=== PATIENT | female | born 1990 | race Caucasian/White ===

== ENCOUNTER 2016-12-26 09:50 | Emergency (ER) | payer MEDICAID, OTHER ==
[2016-12-26 10:13] VITALS: BP 115/79
--- NOTE | 2016-12-26 10:24 | EDM.PDOC ---
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 She has painful lesions that have developed to her vagina. She reports that her boyfriend is a carrier of the herpes virus but has never had an outbreak. First sexual encounter with this partner was 2 weeks ago. She's been feeling ill for the past couple of days with body aches, mild nausea and low-grade fevers. Yesterday she developed some discomfort to her pelvic region and the vaginal lesions.] Review of systems: As per history of present illness and below otherwise all systems reviewed and negative. Past medical history: As per history of present illness and as reviewed below otherwise noncontributory. Surgical history: As per history of present illness and as reviewed below otherwise noncontributory. Social history: No reported history of drug or alcohol abuse. Family history: As per history of present illness and as reviewed below otherwise noncontributory. Physical exam: HEENT: Atraumatic, normocephalic. Oral mucous membranes are pink and moist. No lesions. Lungs: Clear to auscultation, breath sounds equal bilaterally. Heart: S1S2, regular rate and rhythm. Abdomen: Soft, nondistended. Mildly tender with palpation over epigastric area. Otherwise nontender. Negative for masses, guarding or rebound. Negative for costovertebral tenderness. Pelvis: Stable nontender. Genitourinary: Normal-appearing external vagina. No discharge noted. Small open vesicular type lesion at 6:00 of vaginal introitus. No other lesions are appreciated. Rectal: Deferred. Extremities: Atraumatic, and without deformity. Neurovascular unremarkable. Neuro: Awake, alert, oriented. Motor and sensory unremarkable throughout. Exam nonfocal. Impression: [Herpes simplex virus] Plan: [Discussed with patient that her symptoms appear to be consistent with herpes simplex. Rx written for acyclovir 400 mg #30 sig 1 by mouth 3 times a day 10 days 0 refills. Instructed to keep the area clean and dry. Good handwashing. Urged her to establish care with a local PCP for further STD testing and management of herpes. Discussed w/ patient that serum confirmation of HSV is not generally necessary, as treatment is based up on appearance. If she desires further discussion about this follow-up at PCP or local health department.] Definitive disposition and diagnosis as appropriate pending reevaluation and review of above. 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 ED EXAM, RENAL/ - Physical Exam Exam: See Below Course - Vital Signs Last Recorded V/S: Last Vital Signs Temp 98.8 F 12/26/16 10:08 Pulse 94 12/26/16 10:08 Resp 18 12/26/16 10:08 BP 115/79 12/26/16 10:08 Pulse Ox 97 12/26/16 10:08 Departure - Departure Time of Disposition: 11:05 Disposition: Home, Self-Care 01 Condition: Good Clinical Impression: Herpes simplex - Discharge Information Referrals: PCP,None [Primary Care Provider] - Forms: ED Department Discharge Additional Instructions: The following information is given to patients seen in the emergency department who are being discharged to home. This information is to outline your options for follow-up care. We provide all patients seen in our emergency department with a follow-up referral. The need for follow-up, as well as the timing and circumstances, are variable depending upon the specifics of your emergency department visit. If you don't have a primary care physician on staff, we will provide you with a referral. We always advise you to contact your personal physician following an emergency department visit to inform them of the circumstance of the visit and for follow-up with them and/or the need for any referrals to a consulting specialist. The emergency department will also refer you to a specialist when appropriate. This referral assures that you have the opportunity for follow-up care with a specialist. All of these measure are taken in an effort to provide you with optimal care, which includes your follow-up. Under all circumstances we always encourage you to contact your private physician who remains a resource for coordinating your care. When calling for follow-up care, please make the office aware that this follow-up is from your recent emergency room visit. If for any reason you are refused follow-up, please contact the [facility] emergency department at and asked to speak to the emergency department charge nurse. [facility] [address] [place] [id number] Establish care with a local primary care provider at the clinic listed above. Take medication as prescribed. Good handwashing, keep area clean and dry. Pelvic rest. Return to ER as needed as discussed.
== END 2016-12-26 11:40 | disposition home or self-care (01) ==
LOC: MW.ED 09:50
DX: B00.9 Herpesviral infection, unspecified (principal); Z88.1 Allergy status to other antibiotic agents; Z88.0 Allergy status to penicillin; Z88.2 Allergy status to sulfonamides
CPT/HCPCS: 99282; 99283

== ENCOUNTER 2019-03-05 21:02 | Observation (INO) | payer BC, OTHER ==
[2019-03-05] MEDS ORDERED: Ondansetron 4 MG/2 ML SDV IVPUSH ONE (21:14)
[2019-03-05] MEDS ORDERED: Sodium Chloride 0.9% 1,000 ML IV ONE ×2 (21:14→23:43)
--- NOTE | 2019-03-05 21:15 | EDM.PDOC ---
ED HPI GENERAL MEDICAL PROBLEM - General Chief Complaint: Abdominal Pain Stated Complaint: STOMACH PAIN Time Seen by Provider: 03/05/19 21:03 - History of Present Illness INITIAL COMMENTS - FREE TEXT/NARRATIVE: HISTORY AND PHYSICAL: History of present illness: Patiently 28-year-old female was recently diagnosed with right otitis media and put on azithromycin with known developed nausea vomiting and diarrhea she denies fever chills denies vaginal discharge or irregular bleeding or other complaints. Review of systems: As per history of present illness and below otherwise all systems reviewed and negative. Past medical history: As per history of present illness and as reviewed below otherwise noncontributory. Surgical history: As per history of present illness and as reviewed below otherwise noncontributory. Social history: No reported history of drug or alcohol abuse. Family history: As per history of present illness and as reviewed below otherwise noncontributory. Physical exam: HEENT: Atraumatic, normocephalic, pupils reactive, negative for conjunctival pallor or scleral icterus, mucous membranes dry, throat clear, neck supple, nontender, trachea midline. Lungs: Clear to auscultation, breath sounds equal bilaterally, chest nontender. Heart: S1S2, regular, negative for clicks, rubs, or JVD. Abdomen: Soft, nondistended, nontender. Negative for masses or hepatosplenomegaly. Negative for costovertebral tenderness. Pelvis: Stable nontender. Genitourinary: Deferred. Rectal: Deferred. Extremities: Atraumatic, negative for cords or calf pain. Neurovascular unremarkable. Neuro: Awake, alert, oriented. Cranial nerves II through XII unremarkable. Cerebellum unremarkable. Motor and sensory unremarkable throughout. Exam nonfocal. Diagnostics: CBC CMP UA hCG lipase Therapeutics: Saline 1 L bolus Zofran 4 mg IV Impression: #1 gastroenteritis #2 history of recent otitis media #3 rule out drug reaction Definitive disposition and diagnosis as appropriate pending reevaluation and review of above. 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 ED EXAM, GENERAL - Physical Exam Exam: See Below (Dictation) Course - Vital Signs Last Recorded V/S: Last Vital Signs Temp 36.1 C 03/05/19 21:13 Pulse 116 H 03/05/19 21:13 Resp 20 03/05/19 21:13 BP 111/73 03/05/19 21:13 Pulse Ox 95 03/05/19 21:13 - Orders/Labs/Meds Orders: Active Orders 24 hr Category Date Time Status CULTURE URINE [RM] Stat Lab 03/05/19 21:24 Received [email or web address] [Rocephin in Dextrose,Iso-Osm 1 GM/50 ML] 1 Med 03/05/19 22:06 Active gm Premix Bag 1 bag IV ONETIME Medication Orders Ceftriaxone Sodium/Dextrose 1 (gm/ Premix) 50 mls @ 100 mls/hr IV ONETIME ONE Stop: 03/05/19 22:35 Labs: Laboratory Tests 03/05/19 03/05/19 03/05/19 Range/Units 21:24 21:35 21:35 WBC 21.91 H (4.0-11.0) K/uL RBC 5.69 (4.30-5.90) M/uL Hgb 17.3 H (12.0-16.0) g/dL Hct 49.3 H (36.0-46.0) % MCV 86.6 (80.0-98.0) fL MCH 30.4 (27.0-32.0) pg MCHC 35.1 (31.0-37.0) g/dL RDW Std Deviation 41.5 (28.0-62.0) fl RDW Coeff of Castillo 13 (11.0-15.0) % Plt Count 302 (150-400) K/uL MPV 10.60 (7.40-12.00) fL Neut % (Auto) 79.1 (48.0-80.0) % Lymph % (Auto) 14.1 L (16.0-40.0) % Lassen % (Auto) 4.6 (0.0-15.0) % Eos % (Auto) 1.9 (0.0-7.0) % Baso % (Auto) 0.3 (0.0-1.5) % Neut # (Auto) 17.3 H (1.4-5.7) K/uL Lymph # (Auto) 3.1 H (0.6-2.4) K/uL Lassen # (Auto) 1.0 H (0.0-0.8) K/uL Eos # (Auto) 0.4 (0.0-0.7) K/uL Baso # (Auto) 0.1 (0.0-0.1) K/uL Nucleated RBC % 0.0 /100WBC Nucleated RBCs # 0 K/uL Sodium 138 (136-145) mmol/L Potassium 4.0 (3.5-5.1) mmol/L Chloride 101 (98-107) mmol/L Carbon Dioxide 23.0 (21.0-32.0) mmol/L BUN 14 (7.0-18.0) mg/dL Creatinine 1.0 (0.6-1.0) mg/dL Est Cr Clr Drug Dosing 74.69 mL/min Estimated GFR (MDRD) > 60.0 ml/min Glucose 102 (74-106) mg/dL Calcium 9.6 (8.5-10.1) mg/dL Total Bilirubin 0.6 (0.2-1.0) mg/dL AST 13 L (15-37) IU/L ALT 26 (14-63) IU/L Alkaline Phosphatase 84 (46-116) U/L Total Protein 8.7 H (6.4-8.2) g/dL Albumin 3.6 (3.4-5.0) g/dL Globulin 5.1 H (2.6-4.0) g/dL Albumin/Globulin Ratio 0.7 L (0.9-1.6) Lipase (73-393) U/L HCG, Qual (NEG) Urine Color YELLOW Urine Appearance CLOUDY Urine pH 6.0 (5.0-8.0) Ur Specific [place] >= 1.030 (1.001-1.035) Urine Protein 30 H (NEGATIVE) mg/dL Urine Glucose (UA) NEGATIVE (NEGATIVE) mg/dL Urine Ketones TRACE H (NEGATIVE) mg/dL Urine Occult Blood TRACE-INTACT H (NEGATIVE) Urine Nitrite POSITIVE H (NEGATIVE) Urine Bilirubin SMALL H (NEGATIVE) Urine Ictotest NEGATIVE Urine Urobilinogen 1.0 (<2.0) EU/dL Ur Leukocyte Esterase NEGATIVE (NEGATIVE) Urine RBC 0-2 (0-2/HPF) Urine WBC 1-2 (0-5/HPF) Ur Epithelial Cells FEW (NONE-FEW) Urine Bacteria 4+ H (NEGATIVE) Urine Mucus LIGHT (NONE-MOD) 03/05/19 03/05/19 Range/Units 21:35 21:35 WBC (4.0-11.0) K/uL RBC (4.30-5.90) M/uL Hgb (12.0-16.0) g/dL Hct (36.0-46.0) % MCV (80.0-98.0) fL MCH (27.0-32.0) pg MCHC (31.0-37.0) g/dL RDW Std Deviation (28.0-62.0) fl RDW Coeff of Castillo (11.0-15.0) % Plt Count (150-400) K/uL MPV (7.40-12.00) fL Neut % (Auto) (48.0-80.0) % Lymph % (Auto) (16.0-40.0) % Lassen % (Auto) (0.0-15.0) % Eos % (Auto) (0.0-7.0) % Baso % (Auto) (0.0-1.5) % Neut # (Auto) (1.4-5.7) K/uL Lymph # (Auto) (0.6-2.4) K/uL Lassen # (Auto) (0.0-0.8) K/uL Eos # (Auto) (0.0-0.7) K/uL Baso # (Auto) (0.0-0.1) K/uL Nucleated RBC % /100WBC Nucleated RBCs # K/uL Sodium (136-145) mmol/L Potassium (3.5-5.1) mmol/L Chloride (98-107) mmol/L Carbon Dioxide (21.0-32.0) mmol/L BUN (7.0-18.0) mg/dL Creatinine (0.6-1.0) mg/dL Est Cr Clr Drug Dosing mL/min Estimated GFR (MDRD) ml/min Glucose (74-106) mg/dL Calcium (8.5-10.1) mg/dL Total Bilirubin (0.2-1.0) mg/dL AST (15-37) IU/L ALT (14-63) IU/L Alkaline Phosphatase (46-116) U/L Total Protein (6.4-8.2) g/dL Albumin (3.4-5.0) g/dL Globulin (2.6-4.0) g/dL Albumin/Globulin Ratio (0.9-1.6) Lipase 127 (73-393) U/L HCG, Qual NEGATIVE (NEG) Urine Color Urine Appearance Urine pH (5.0-8.0) Ur Specific [place] (1.001-1.035) Urine Protein (NEGATIVE) mg/dL Urine Glucose (UA) (NEGATIVE) mg/dL Urine Ketones (NEGATIVE) mg/dL Urine Occult Blood (NEGATIVE) Urine Nitrite (NEGATIVE) Urine Bilirubin (NEGATIVE) Urine Ictotest Urine Urobilinogen (<2.0) EU/dL Ur Leukocyte Esterase (NEGATIVE) Urine RBC (0-2/HPF) Urine WBC (0-5/HPF) Ur Epithelial Cells (NONE-FEW) Urine Bacteria (NEGATIVE) Urine Mucus (NONE-MOD) Meds: Medications Generic Name Dose Route Start Last Admin Trade Name Freq PRN Reason Stop Dose Admin Ceftriaxone Sodium/Dextrose 1 50 mls @ 100 mls/hr 03/05/19 22:06 gm/ Premix IV 03/05/19 22:35 ONETIME ONE Discontinued Medications Generic Name Dose Route Start Last Admin Trade Name Freq PRN Reason Stop Dose Admin Sodium Chloride 1,000 mls @ 999 mls/hr 03/05/19 21:14 03/05/19 21:35 Normal Saline IV 03/05/19 22:14 999 mls/hr .Bolus ONE Administration Ondansetron HCl 4 mg 03/05/19 21:14 03/05/19 21:35 Zofran IVPUSH 03/05/19 21:15 4 mg ONETIME ONE Administration Departure - Departure Time of Disposition: 22:25 Disposition: Refer to Observation Condition: Good Clinical Impression: Gastroenteritis, UTI (urinary tract infection), Dehydration - Discharge Information Referrals: Leta Reich DO [Primary Care Provider] - Forms: ED Department Discharge - My Orders Last 24 Hours: My Active Orders 03/05/19 21:24 CULTURE URINE [RM] Stat 03/05/19 22:06 [email or web address] [Rocephin in Dextrose,Iso-Osm 1 GM/50 ML] 1 gm Premix Bag 1 bag IV ONETIME - Assessment/Plan Last 24 Hours: My Active Orders 03/05/19 21:24 CULTURE URINE [RM] Stat 03/05/19 22:06 [email or web address] [Rocephin in Dextrose,Iso-Osm 1 GM/50 ML] 1 gm Premix Bag 1 bag IV ONETIME
[2019-03-05] MEDS ORDERED: cefTRIAXone 1 GM in Premix Bag 1 BAG IV ONE (22:06)
[2019-03-05 22:17] LABS: BLOOD UREA NITROGEN,BUN 14 mg/dL (7.0-18.0); CHLORIDE,CL 101 mmol/L (98-107); GLUCOSE RANDOM 102 mg/dL (74-106); SODIUM,NA 138 mmol/L (136-145)
[2019-03-05] MEDS ORDERED: Ondansetron 4 MG/2 ML SDV IVPUSH PRN (23:44)
[2019-03-05] MEDS ORDERED: Pantoprazole 40 MG in Sodium Chloride 0.9% 10 ML IV ONE (23:44)
[2019-03-05] MEDS ORDERED: Aluminum Hydroxide/Magnesium Hydroxide/Simethicone Susp 30 ML Cup PO PRN (23:54)
[2019-03-06] MEDS: Morphine 2 MG/ML Syringe IVPUSH PRN ×4 (00:18→23:14)
[2019-03-06] MEDS: Sodium Chloride 0.9% 1,000 ML IV SCH ×3 (02:43→18:40)
[2019-03-06] MEDS: Pantoprazole 40 MG in Sodium Chloride 0.9% 10 ML IV SCH (11:25)
[2019-03-06 13:35] LABS: BLOOD UREA NITROGEN,BUN 14 mg/dL (7.0-18.0); CARBON DIOXIDE,CO2 24.2 mmol/L (21.0-32.0); CHLORIDE,CL 108 mmol/L (98-107); GLUCOSE RANDOM 77 mg/dL (74-106); POTASSIUM,K 4.1 mmol/L (3.5-5.1); SODIUM,NA 140 mmol/L (136-145)
--- NOTE | 2019-03-06 16:18 | PCM.HP.2 ---
<Dillan Wallace M - Last Filed: 03/06/19 16:32> H&P History of Present Illness - General Date of Service: 03/06/19 Admit Problem/Dx: Admission Diagnosis/Problem Admission Diagnosis/Problem Gastroenteritis Source of Information: Patient History Limitations: Reports: No Limitations - History of Present Illness Initial Comments - Free Text/Narative: 28-year-old female presented to ER with complaints of nausea, vomiting and diarrhea. Patient reports that these symptoms started 3 days ago. She was diagnosed with right ear infection 3 days ago and prescribed azithromycin. Patient states that on the same day, she started experiencing nausea, vomiting, diarrhea and abdominal cramping. She is also having headaches. Patient reports having up to 12 loose, non-bloody, bowel movements per day. She denies having any fevers, chills, shortness of breath, chest pain, blood in urine, pain when urinating, blood in stool, numbness or tingling in extremities. In the ER, UA nitrite positive with 4+ bacteria. Lactate was normal. WBC count was 21. CMP unremarkable. Patient given 1 L NS boluse, zofran and started on ceftriaxone. Middle Abdomen Pain Score (Numeric/FACES): 5 - Related Data Allergies/Adverse Reactions: Allergies Allergy/AdvReac Type Severity Reaction Status Date / Time amoxicillin Allergy Airway Verified 03/05/19 23:33 Tightness Penicillins Allergy Airway Verified 03/05/19 23:33 Tightness Sulfa (Sulfonamide Allergy Airway Verified 03/05/19 23:33 Antibiotics) Tightness Home Medications: Home Meds Alum Hydrox/Mag Hydrox/Simeth [Mag-Al Plus] 15 ml PO Q6H PRN #14 cup 03/07/19 [ Rx] Ciprofloxacin HCl [Cipro] 250 mg PO BID #10 tablet 03/07/19 [Rx] Pantoprazole [ProTONIX] 40 mg PO DAILY #7 tab.cr 03/07/19 [Rx] Past Medical History - Past Health History Medical/Surgical History: Denies Medical/Surgical History [employer]OCIATE History: Reports: Psychiatric History: Reports: None - Infectious Disease History Infectious Disease History: Reports: Chicken Pox - Past Surgical History HEENT Surgical History: Reports: Adenoidectomy, Tonsillectomy Female Surgical History: Reports: Section Social & Family History - Family History Family Medical History: Noncontributory - Tobacco Use Smoking Status *Q: Current Every Day Smoker Years of Tobacco use: 4 Packs/Tins Daily: 0.5 - Caffeine Use Caffeine Use: Reports: Coffee - Recreational Drug Use Recreational Drug Use: No H&P Review of Systems - Review of Systems: Review Of Systems: Comprehensive ROS is negative, except as noted in HPI. Exam - Exam Exam: See Below - Vital Signs Vital Signs: Last Vital Signs Temp 98.1 F 03/06/19 12:00 Pulse 75 03/06/19 12:00 Resp 18 03/06/19 12:00 BP 109/63 03/06/19 12:00 Pulse Ox 96 03/06/19 12:00 Weight: 116.256 kg - Exam General: Alert, Oriented, Cooperative HEENT: Conjunctiva Clear, EOMI, Hearing Intact Neck: Supple, Trachea Midline Lungs: Clear to Auscultation, Normal Respiratory Effort Cardiovascular: Regular Rate, Regular Rhythm GI/Abdominal Exam: Normal Bowel Sounds, Soft, No Distention, Other (mild epigastric tenderness) Extremities: Normal Inspection, No Pedal Edema Peripheral Pulses: 2+: Posterior Tibial (L), Posterior Tibial (R) Skin: Warm, Dry, Intact Neurological: Cranial Nerves Intact, Strength Equal Bilateral, Normal Speech, Normal Tone Neuro Extensive - Mental Status: Alert, Oriented x3, Normal Mood/Affect - Patient Data Lab Results Last 24 hrs: Laboratory Results - last 24 hr 03/05/19 03/05/19 03/05/19 Range/Units 21:24 21:35 21:35 WBC 21.91 H (4.0-11.0) K/uL RBC 5.69 (4.30-5.90) M/uL Hgb 17.3 H (12.0-16.0) g/dL Hct 49.3 H (36.0-46.0) % MCV 86.6 (80.0-98.0) fL MCH 30.4 (27.0-32.0) pg MCHC 35.1 (31.0-37.0) g/dL RDW Std Deviation 41.5 (28.0-62.0) fl RDW Coeff of Castillo 13 (11.0-15.0) % Plt Count 302 (150-400) K/uL MPV 10.60 (7.40-12.00) fL Neut % (Auto) 79.1 (48.0-80.0) % Lymph % (Auto) 14.1 L (16.0-40.0) % [place] % (Auto) 4.6 (0.0-15.0) % Eos % (Auto) 1.9 (0.0-7.0) % Baso % (Auto) 0.3 (0.0-1.5) % Neut # (Auto) 17.3 H (1.4-5.7) K/uL Lymph # (Auto) 3.1 H (0.6-2.4) K/uL [place] # (Auto) 1.0 H (0.0-0.8) K/uL Eos # (Auto) 0.4 (0.0-0.7) K/uL Baso # (Auto) 0.1 (0.0-0.1) K/uL Nucleated RBC % 0.0 /100WBC Nucleated RBCs # 0 K/uL Lactate (0.20-2.00) mmol/L Sodium 138 (136-145) mmol/L Potassium 4.0 (3.5-5.1) mmol/L Chloride 101 (98-107) mmol/L Carbon Dioxide 23.0 (21.0-32.0) mmol/L BUN 14 (7.0-18.0) mg/dL Creatinine 1.0 (0.6-1.0) mg/dL Est Cr Clr Drug Dosing 74.69 mL/min Estimated GFR (MDRD) > 60.0 ml/min Glucose 102 (74-106) mg/dL Calcium 9.6 (8.5-10.1) mg/dL Total Bilirubin 0.6 (0.2-1.0) mg/dL AST 13 L (15-37) IU/L ALT 26 (14-63) IU/L Alkaline Phosphatase 84 (46-116) U/L Total Protein 8.7 H (6.4-8.2) g/dL Albumin 3.6 (3.4-5.0) g/dL Globulin 5.1 H (2.6-4.0) g/dL Albumin/Globulin Ratio 0.7 L (0.9-1.6) Lipase (73-393) U/L HCG, Qual (NEG) Urine Color YELLOW Urine Appearance CLOUDY Urine pH 6.0 (5.0-8.0) Ur Specific [place] >= 1.030 (1.001-1.035) Urine Protein 30 H (NEGATIVE) mg/dL Urine Glucose (UA) NEGATIVE (NEGATIVE) mg/dL Urine Ketones TRACE H (NEGATIVE) mg/dL Urine Occult Blood TRACE-INTACT H (NEGATIVE) Urine Nitrite POSITIVE H (NEGATIVE) Urine Bilirubin SMALL H (NEGATIVE) Urine Ictotest NEGATIVE Urine Urobilinogen 1.0 (<2.0) EU/dL Ur Leukocyte Esterase NEGATIVE (NEGATIVE) Urine RBC 0-2 (0-2/HPF) Urine WBC 1-2 (0-5/HPF) Ur Epithelial Cells FEW (NONE-FEW) Urine Bacteria 4+ H (NEGATIVE) Urine Mucus LIGHT (NONE-MOD) 03/05/19 03/05/19 03/05/19 Range/Units 21:35 21:35 21:35 WBC (4.0-11.0) K/uL RBC (4.30-5.90) M/uL Hgb (12.0-16.0) g/dL Hct (36.0-46.0) % MCV (80.0-98.0) fL MCH (27.0-32.0) pg MCHC (31.0-37.0) g/dL RDW Std Deviation (28.0-62.0) fl RDW Coeff of Castillo (11.0-15.0) % Plt Count (150-400) K/uL MPV (7.40-12.00) fL Neut % (Auto) (48.0-80.0) % Lymph % (Auto) (16.0-40.0) % [place] % (Auto) (0.0-15.0) % Eos % (Auto) (0.0-7.0) % Baso % (Auto) (0.0-1.5) % Neut # (Auto) (1.4-5.7) K/uL Lymph # (Auto) (0.6-2.4) K/uL [place] # (Auto) (0.0-0.8) K/uL Eos # (Auto) (0.0-0.7) K/uL Baso # (Auto) (0.0-0.1) K/uL Nucleated RBC % /100WBC Nucleated RBCs # K/uL Lactate 1.0 (0.20-2.00) mmol/L Sodium (136-145) mmol/L Potassium (3.5-5.1) mmol/L Chloride (98-107) mmol/L Carbon Dioxide (21.0-32.0) mmol/L BUN (7.0-18.0) mg/dL Creatinine (0.6-1.0) mg/dL Est Cr Clr Drug Dosing mL/min Estimated GFR (MDRD) ml/min Glucose (74-106) mg/dL Calcium (8.5-10.1) mg/dL Total Bilirubin (0.2-1.0) mg/dL AST (15-37) IU/L ALT (14-63) IU/L Alkaline Phosphatase (46-116) U/L Total Protein (6.4-8.2) g/dL Albumin (3.4-5.0) g/dL Globulin (2.6-4.0) g/dL Albumin/Globulin Ratio (0.9-1.6) Lipase 127 (73-393) U/L HCG, Qual NEGATIVE (NEG) Urine Color Urine Appearance Urine pH (5.0-8.0) Ur Specific [place] (1.001-1.035) Urine Protein (NEGATIVE) mg/dL Urine Glucose (UA) (NEGATIVE) mg/dL Urine Ketones (NEGATIVE) mg/dL Urine Occult Blood (NEGATIVE) Urine Nitrite (NEGATIVE) Urine Bilirubin (NEGATIVE) Urine Ictotest Urine Urobilinogen (<2.0) EU/dL Ur Leukocyte Esterase (NEGATIVE) Urine RBC (0-2/HPF) Urine WBC (0-5/HPF) Ur Epithelial Cells (NONE-FEW) Urine Bacteria (NEGATIVE) Urine Mucus (NONE-MOD) 03/06/19 03/06/19 Range/Units 13:05 13:05 WBC 12.49 H (4.0-11.0) K/uL RBC 4.69 (4.30-5.90) M/uL Hgb 13.8 (12.0-16.0) g/dL Hct 42.0 (36.0-46.0) % MCV 89.6 (80.0-98.0) fL MCH 29.4 (27.0-32.0) pg MCHC 32.9 (31.0-37.0) g/dL RDW Std Deviation 43.6 (28.0-62.0) fl RDW Coeff of Castillo 13 (11.0-15.0) % Plt Count 240 (150-400) K/uL MPV 10.50 (7.40-12.00) fL Neut % (Auto) 72.5 (48.0-80.0) % Lymph % (Auto) 17.4 (16.0-40.0) % [place] % (Auto) 6.1 (0.0-15.0) % Eos % (Auto) 3.8 (0.0-7.0) % Baso % (Auto) 0.2 (0.0-1.5) % Neut # (Auto) 9.1 H (1.4-5.7) K/uL Lymph # (Auto) 2.2 (0.6-2.4) K/uL [place] # (Auto) 0.8 (0.0-0.8) K/uL Eos # (Auto) 0.5 (0.0-0.7) K/uL Baso # (Auto) 0.0 (0.0-0.1) K/uL Nucleated RBC % 0.0 /100WBC Nucleated RBCs # 0 K/uL Lactate (0.20-2.00) mmol/L Sodium 140 (136-145) mmol/L Potassium 4.1 (3.5-5.1) mmol/L Chloride 108 H (98-107) mmol/L Carbon Dioxide 24.2 (21.0-32.0) mmol/L BUN 14 (7.0-18.0) mg/dL Creatinine 0.8 (0.6-1.0) mg/dL Est Cr Clr Drug Dosing 89.60 mL/min Estimated GFR (MDRD) > 60.0 ml/min Glucose 77 (74-106) mg/dL Calcium 7.9 L (8.5-10.1) mg/dL Total Bilirubin 0.5 (0.2-1.0) mg/dL AST 15 (15-37) IU/L ALT 21 (14-63) IU/L Alkaline Phosphatase 59 (46-116) U/L Total Protein 6.7 (6.4-8.2) g/dL Albumin 2.6 L (3.4-5.0) g/dL Globulin 4.1 H (2.6-4.0) g/dL Albumin/Globulin Ratio 0.6 L (0.9-1.6) Lipase (73-393) U/L HCG, Qual (NEG) Urine Color Urine Appearance Urine pH (5.0-8.0) Ur Specific [place] (1.001-1.035) Urine Protein (NEGATIVE) mg/dL Urine Glucose (UA) (NEGATIVE) mg/dL Urine Ketones (NEGATIVE) mg/dL Urine Occult Blood (NEGATIVE) Urine Nitrite (NEGATIVE) Urine Bilirubin (NEGATIVE) Urine Ictotest Urine Urobilinogen (<2.0) EU/dL Ur Leukocyte Esterase (NEGATIVE) Urine RBC (0-2/HPF) Urine WBC (0-5/HPF) Ur Epithelial Cells (NONE-FEW) Urine Bacteria (NEGATIVE) Urine Mucus (NONE-MOD) Result Diagrams: 03/06/19 13:05 03/06/19 13:05 Bishop Results Last 24 hrs: Microbiology 03/06/19 08:30 C. difficile Antigen & Toxins A,B - Final Stool / Feces 03/06/19 08:30 Campylobacter Antigen Assay - Final Stool / Feces NEGATIVE CAMPYLOBACTER AG REFERENCE RANGE: NEGATIVE 03/06/19 01:50 Anaerobic Blood Culture - Final Blood - Venous - Lab Draw Problem List Initiated/Reviewed/Updated: Yes Orders Last 24hrs: Active Orders 24 hr Category Date Time Status Patient Status [ADT] Stat ADT 03/05/19 22:26 Active Antiembolic Devices [RC] PER UNIT ROUTINE Care 03/06/19 09:27 Active NPO [Nothing Per Oral Diet] [DIET] Diet 03/06/19 Breakfast Active CBC WITH AUTO DIFF [HEME] AM Lab 03/07/19 05:11 Ordered COMPREHENSIVE METABOLIC PN,CMP [CHEM] AM Lab 03/07/19 05:11 Ordered CULTURE BLOOD [BC] Stat Lab 03/05/19 23:46 Received CULTURE BLOOD [BC] Stat Lab 03/05/19 23:46 Results CULTURE STOOL + CAMPY+SHIGATOX [RM] Routine Lab 03/06/19 08:30 Results CULTURE URINE [RM] Stat Lab 03/05/19 21:24 Received H PYLORI STOOL ANTIGEN [MREF] Urgent Lab 03/06/19 13:29 Ordered Alum Hydrox/Mag Hydrox/Simeth [Mag-Al Plus] Med 03/05/19 23:54 Active 15 ml PO Q6H PRN Morphine Med 03/05/19 23:56 Active 2 mg IVPUSH Q6H PRN Ondansetron [Zofran] Med 03/05/19 23:44 Active 4 mg IVPUSH Q6H PRN Pantoprazole [ProTONIX IV] 40 mg Med 03/06/19 10:45 Active Sodium Chloride 0.9% [Normal Saline] 10 ml IV Q24H Sodium Chloride 0.9% [Normal Saline] 1,000 ml Med 03/06/19 00:30 Active IV ASDIRECTED cefTRIAXone [Rocephin in Dextrose,Iso-Osm 1 GM/50 ML] 1 Med 03/06/19 21:00 Active gm Premix Bag 1 bag IV Q24H Blood Culture x2 Reflex Set [OM.PC] Stat Oth 03/05/19 23:46 Ordered SCD [Sequential Compression Device] [OM.PC] Routine Oth 03/06/19 09:27 Ordered Code Status [Resuscitation Status] Routine Resus Stat 03/06/19 09:26 Ordered Medication Orders Al Hydroxide/Mg Hydroxide (Mag-Al Plus) 15 ml PO Q6H PRN PRN Reason: Heartburn Ceftriaxone Sodium/Dextrose 1 (gm/ Premix) 50 mls @ 100 mls/hr IV Q24H DEANNA Sodium Chloride (Normal Saline) 1,000 mls @ 125 mls/hr IV ASDIRECTED DEANNA Last Admin: 03/06/19 11:26 Dose: 125 mls/hr Infusion: 03/06/19 10:43 Dose: 125 mls/hr Admin: 03/06/19 02:43 Dose: 125 mls/hr Pantoprazole Sodium 40 mg/ (Sodium Chloride) 10 mls @ 300 mls/hr IV Q24H DEANNA Last Admin: 03/06/19 11:25 Dose: 300 mls/hr Morphine Sulfate (Morphine) 2 mg IVPUSH Q6H PRN PRN Reason: Pain Last Admin: 03/06/19 10:39 Dose: 2 mg Admin: 03/06/19 00:18 Dose: 2 mg Ondansetron HCl (Zofran) 4 mg IVPUSH Q6H PRN PRN Reason: Nausea/Vomiting Last Admin: 03/06/19 10:37 Dose: 4 mg Assessment/Plan Comment:: Assessment and Plan: 1. Nausea, vomiting and diarrhea: Will keep patient NPO, continue IV NS 125 cc/ hr and zofran prn. Stool studies pending, so far negative for Campylobacter and c.diff. Blood cultures pending. Will attempt to advance to clear liquid diet if patient willing. 2. UTI: Will treat with IV ceftriaxone. Urine cultures pending. 3. Leukocytosis, improved. <Courtney Macias - Last Filed: 03/09/19 11:46> H&P History of Present Illness - General Admit Problem/Dx: Admission Diagnosis/Problem Admission Diagnosis/Problem Gastroenteritis Exam - Vital Signs Vital Signs: Last Vital Signs Temp 36.1 C 03/07/19 12:00 Pulse 81 03/07/19 12:00 Resp 16 03/07/19 12:00 BP 117/73 03/07/19 12:00 Pulse Ox 97 03/07/19 12:00 - Patient Data Result Diagrams: 03/07/19 06:05 03/07/19 06:05 Bishop Results Last 24 hrs: Microbiology 03/06/19 01:50 Aerobic Blood Culture - Preliminary Blood - Venous - Lab Draw NO GROWTH AFTER 3 DAYS Anaerobic Blood Culture - Final 03/06/19 00:40 Aerobic Blood Culture - Preliminary Blood - Venous NO GROWTH AFTER 3 DAYS Anaerobic Blood Culture - Preliminary NO GROWTH AFTER 3 DAYS 03/06/19 08:30 Stool Culture - Final Stool / Feces Campylobacter Antigen Assay - Final NEGATIVE CAMPYLOBACTER AG REFERENCE RANGE: NEGATIVE Shiga Toxin I - Final NEGATIVE FOR SHIGA TOXIN 1 REFERENCE RANGE: NEGATIVE Shiga Toxin II - Final NEGATIVE FOR SHIGA TOXIN 2 REFERENCE RANGE: NEGATIVE - Problem List (1) Dehydration SNOMED Code(s): 00427702 ICD Code: E86.0 - DEHYDRATION Status: Acute (2) Gastroenteritis SNOMED Code(s): 11902471 ICD Code: K52.9 - NONINFECTIVE GASTROENTERITIS AND COLITIS, UNSPECIFIED Status: Acute (3) UTI (urinary tract infection) SNOMED Code(s): 84424075 ICD Code: N39.0 - URINARY TRACT INFECTION, SITE NOT SPECIFIED Status: Acute Assessment/Plan Comment:: I performed a history and physical exam of the patient and discussed management with resident. I have reviewed the residents note and agree with documented findings and plan unless otherwise specified in my note.
[2019-03-06] MEDS ORDERED: cefTRIAXone 1 GM in Premix Bag 1 BAG IV SCH (21:00)
[2019-03-07] MEDS: Sodium Chloride 0.9% 1,000 ML IV SCH ×2 (03:14→10:24)
[2019-03-07 07:01] LABS: BLOOD UREA NITROGEN,BUN 9 mg/dL (7.0-18.0); CARBON DIOXIDE,CO2 23.6 mmol/L (21.0-32.0); CHLORIDE,CL 106 mmol/L (98-107); GLUCOSE RANDOM 61 mg/dL (74-106); POTASSIUM,K 4.1 mmol/L (3.5-5.1); SODIUM,NA 140 mmol/L (136-145)
[2019-03-07] MEDS: Pantoprazole 40 MG in Sodium Chloride 0.9% 10 ML IV SCH (10:25)
--- NOTE | 2019-03-07 12:36 | PCM.PN ---
- General Info Date of Service: 03/07/19 Admission Dx/Problem (Free Text): Admission Diagnosis/Problem Admission Diagnosis/Problem Gastroenteritis Subjective Update: Feeling better. Diarrhea has improved but still has loose stools. Functional Status: Reports: Pain Controlled, Ambulating, Urinating - Review of Systems General: Reports: Weakness. Denies: Fever, Fatigue Pulmonary: Reports: No Symptoms. Denies: Shortness of Breath, Pleuritic Chest Pain Cardiovascular: Denies: Chest Pain, Palpitations Gastrointestinal: Denies: Abdominal Pain, Decreased Appetite Genitourinary: Denies: Dysuria, Frequency, Burning Musculoskeletal: Denies: Neck Pain, Shoulder Pain, Arm Pain Skin: Denies: Cyanosis, Jaundice, Mottled Neurological: Denies: Confusion, Dizziness, Headache Psychiatric: Denies: Confusion, Depression - Patient Data Vitals - Most Recent: Last Vital Signs Temp 36.3 C 03/07/19 08:00 Pulse 84 03/07/19 08:00 Resp 16 03/07/19 08:00 BP 115/65 03/07/19 08:00 Pulse Ox 95 03/07/19 08:00 Weight - Most Recent: 116.256 kg I&O - Last 24 Hours: Intake & Output 03/06/19 03/07/19 03/07/19 22:59 06:59 14:59 Intake Total 2583 1120 Output Total 260 Balance 2323 1120 Lab Results Last 24 Hours: Laboratory Results - last 24 hr 03/06/19 03/06/19 03/07/19 Range/Units 13:05 13:05 06:05 WBC 12.49 H 12.85 H (4.0-11.0) K/uL RBC 4.69 4.60 (4.30-5.90) M/uL Hgb 13.8 13.7 (12.0-16.0) g/dL Hct 42.0 41.1 (36.0-46.0) % MCV 89.6 89.3 (80.0-98.0) fL MCH 29.4 29.8 (27.0-32.0) pg MCHC 32.9 33.3 (31.0-37.0) g/dL RDW Std Deviation 43.6 42.1 (28.0-62.0) fl RDW Coeff of Castillo 13 13 (11.0-15.0) % Plt Count 240 240 (150-400) K/uL MPV 10.50 10.50 (7.40-12.00) fL Neut % (Auto) 72.5 71.0 (48.0-80.0) % Lymph % (Auto) 17.4 19.8 (16.0-40.0) % [place] % (Auto) 6.1 5.0 (0.0-15.0) % Eos % (Auto) 3.8 4.0 (0.0-7.0) % Baso % (Auto) 0.2 0.2 (0.0-1.5) % Neut # (Auto) 9.1 H 9.1 H (1.4-5.7) K/uL Lymph # (Auto) 2.2 2.5 H (0.6-2.4) K/uL [place] # (Auto) 0.8 0.6 (0.0-0.8) K/uL Eos # (Auto) 0.5 0.5 (0.0-0.7) K/uL Baso # (Auto) 0.0 0.0 (0.0-0.1) K/uL Nucleated RBC % 0.0 0.0 /100WBC Nucleated RBCs # 0 0 K/uL Sodium 140 (136-145) mmol/L Potassium 4.1 (3.5-5.1) mmol/L Chloride 108 H (98-107) mmol/L Carbon Dioxide 24.2 (21.0-32.0) mmol/L BUN 14 (7.0-18.0) mg/dL Creatinine 0.8 (0.6-1.0) mg/dL Est Cr Clr Drug Dosing 89.60 mL/min Estimated GFR (MDRD) > 60.0 ml/min Glucose 77 (74-106) mg/dL Calcium 7.9 L (8.5-10.1) mg/dL Total Bilirubin 0.5 (0.2-1.0) mg/dL AST 15 (15-37) IU/L ALT 21 (14-63) IU/L Alkaline Phosphatase 59 (46-116) U/L Total Protein 6.7 (6.4-8.2) g/dL Albumin 2.6 L (3.4-5.0) g/dL Globulin 4.1 H (2.6-4.0) g/dL Albumin/Globulin Ratio 0.6 L (0.9-1.6) 03/07/19 Range/Units 06:05 WBC (4.0-11.0) K/uL RBC (4.30-5.90) M/uL Hgb (12.0-16.0) g/dL Hct (36.0-46.0) % MCV (80.0-98.0) fL MCH (27.0-32.0) pg MCHC (31.0-37.0) g/dL RDW Std Deviation (28.0-62.0) fl RDW Coeff of Castillo (11.0-15.0) % Plt Count (150-400) K/uL MPV (7.40-12.00) fL Neut % (Auto) (48.0-80.0) % Lymph % (Auto) (16.0-40.0) % [place] % (Auto) (0.0-15.0) % Eos % (Auto) (0.0-7.0) % Baso % (Auto) (0.0-1.5) % Neut # (Auto) (1.4-5.7) K/uL Lymph # (Auto) (0.6-2.4) K/uL [place] # (Auto) (0.0-0.8) K/uL Eos # (Auto) (0.0-0.7) K/uL Baso # (Auto) (0.0-0.1) K/uL Nucleated RBC % /100WBC Nucleated RBCs # K/uL Sodium 140 (136-145) mmol/L Potassium 4.1 (3.5-5.1) mmol/L Chloride 106 (98-107) mmol/L Carbon Dioxide 23.6 (21.0-32.0) mmol/L BUN 9 (7.0-18.0) mg/dL Creatinine 0.7 (0.6-1.0) mg/dL Est Cr Clr Drug Dosing 102.40 mL/min Estimated GFR (MDRD) > 60.0 ml/min Glucose 61 L (74-106) mg/dL Calcium 7.8 L (8.5-10.1) mg/dL Total Bilirubin 0.4 (0.2-1.0) mg/dL AST 11 L (15-37) IU/L ALT 22 (14-63) IU/L Alkaline Phosphatase 58 (46-116) U/L Total Protein 6.7 (6.4-8.2) g/dL Albumin 2.7 L (3.4-5.0) g/dL Globulin 4.0 (2.6-4.0) g/dL Albumin/Globulin Ratio 0.7 L (0.9-1.6) Bishop Results Last 24 Hours: Microbiology 03/05/19 21:24 Urine Culture - Final Urine, Clean Catch MIXED JAVIER >100,000 CFU/ML 03/06/19 08:30 Campylobacter Antigen Assay - Final Stool / Feces NEGATIVE CAMPYLOBACTER AG REFERENCE RANGE: NEGATIVE Shiga Toxin I - Final NEGATIVE FOR SHIGA TOXIN 1 REFERENCE RANGE: NEGATIVE Shiga Toxin II - Final NEGATIVE FOR SHIGA TOXIN 2 REFERENCE RANGE: NEGATIVE 03/06/19 01:50 Aerobic Blood Culture - Preliminary Blood - Venous - Lab Draw NO GROWTH AFTER 1 DAY Anaerobic Blood Culture - Final 03/06/19 00:40 Aerobic Blood Culture - Preliminary Blood - Venous NO GROWTH AFTER 1 DAY Anaerobic Blood Culture - Preliminary NO GROWTH AFTER 1 DAY 03/06/19 08:30 C. difficile Antigen & Toxins A,B - Final Stool / Feces Med Orders - Current: Current Medications Al Hydroxide/Mg Hydroxide (Mag-Al Plus) 15 ml PO Q6H PRN PRN Reason: Heartburn Ceftriaxone Sodium/Dextrose 1 (gm/ Premix) 50 mls @ 100 mls/hr IV Q24H [facility] Last Admin: 03/06/19 21:15 Dose: 100 mls/hr Sodium Chloride (Normal Saline) 1,000 mls @ 125 mls/hr IV ASDIRECTED [facility] Last Admin: 03/07/19 10:24 Dose: 125 mls/hr Pantoprazole Sodium 40 mg/ (Sodium Chloride) 10 mls @ 300 mls/hr IV Q24H [facility] Last Admin: 03/07/19 10:25 Dose: 300 mls/hr Morphine Sulfate (Morphine) 2 mg IVPUSH Q6H PRN PRN Reason: Pain Last Admin: 03/06/19 23:14 Dose: 2 mg Ondansetron HCl (Zofran) 4 mg IVPUSH Q6H PRN PRN Reason: Nausea/Vomiting Last Admin: 03/06/19 10:37 Dose: 4 mg Discontinued Medications Sodium Chloride (Normal Saline) 1,000 mls @ 999 mls/hr IV .Bolus ONE Stop: 03/05/19 22:14 Last Admin: 03/05/19 21:35 Dose: 999 mls/hr Ceftriaxone Sodium/Dextrose 1 (gm/ Premix) 50 mls @ 100 mls/hr IV ONETIME ONE Stop: 03/05/19 22:35 Last Admin: 03/05/19 22:25 Dose: 100 mls/hr Pantoprazole Sodium 40 mg/ (Sodium Chloride) 10 mls @ 300 mls/hr IV NOW ONE Stop: 03/05/19 23:45 Last Admin: 03/06/19 00:17 Dose: 300 mls/hr Sodium Chloride (Normal Saline) 1,000 mls @ 999 mls/hr IV ASDIRECTED ONE Stop: 03/06/19 00:43 Last Admin: 03/06/19 00:09 Dose: 999 mls/hr Ondansetron HCl (Zofran) 4 mg IVPUSH ONETIME ONE Stop: 03/05/19 21:15 Last Admin: 03/05/19 21:35 Dose: 4 mg - Exam Quality Assessment: No: Supplemental Oxygen General: Alert, Oriented Neck: Supple Lungs: Clear to Auscultation, Normal Respiratory Effort Cardiovascular: Regular Rate, Regular Rhythm GI/Abdominal Exam: Normal Bowel Sounds, Soft, Non-Tender Extremities: Normal Inspection, Normal Range of Motion - Problem List & Annotations (1) Dehydration SNOMED Code(s): 72775598 Code(s): E86.0 - DEHYDRATION Status: Acute (2) Gastroenteritis SNOMED Code(s): 13888417 Code(s): K52.9 - NONINFECTIVE GASTROENTERITIS AND COLITIS, UNSPECIFIED Status: Acute (3) UTI (urinary tract infection) SNOMED Code(s): 01285622 Code(s): N39.0 - URINARY TRACT INFECTION, SITE NOT SPECIFIED Status: Acute - Problem List Review Problem List Initiated/Reviewed/Updated: Yes - My Orders Last 24 Hours: My Active Orders 03/06/19 21:00 [email or web address] [Rocephin in Dextrose,Iso-Osm 1 GM/50 ML] 1 gm Premix Bag 1 bag IV Q24H 03/07/19 Lunch Soft Diet [DIET] - Plan Plan:: Assessment and Plan: 1. Gastroenteritis: Improving symptoms, continue IV NS 125 cc/hr and Zofran prn. Stool studies pending, so far negative for Campylobacter and c.diff. Blood cultures pending. Will attempt to advance to GI soft diet, if tolerating ok and diarrhea improves will dc later today. 2. UTI: Cultures shows mixed javier, will dc IV Rocephin 3. Leukocytosis, improved. I have seen and evaluated the patient and agree with the residents note unless specified in my note
[2019-03-07 13:54] VITALS: BP 117/73; PULSE 81
--- NOTE | 2019-03-07 14:50 | PCM.DCSUM1 ---
Discharge Summary - Hospital Course Free Text/Narrative:: I have seen and evaluated the patient and agree with the residents note unless specified in my note - Discharge Data Discharge Date: 03/07/19 Discharge Disposition: Home, Self-Care 01 Condition: Stable - Referral to Home Health Primary Care Physician: Leta Reich DO - Discharge Diagnosis/Problem(s) (1) Dehydration SNOMED Code(s): 90166802 ICD Code: E86.0 - DEHYDRATION Status: Acute (2) Gastroenteritis SNOMED Code(s): 16828325 ICD Code: K52.9 - NONINFECTIVE GASTROENTERITIS AND COLITIS, UNSPECIFIED Status: Acute (3) UTI (urinary tract infection) SNOMED Code(s): 88259530 ICD Code: N39.0 - URINARY TRACT INFECTION, SITE NOT SPECIFIED Status: Acute - Patient Instructions Diet: Regular Diet as Tolerated, Drink 8-10+ Glasses/Day Activity: As Tolerated Driving: May Drive Today Showering/Bathing: May Shower Notify Provider of: Fever, Increased Pain, Swelling and Redness, Nausea and/or Vomiting - Discharge Plan *PRESCRIPTION DRUG MONITORING PROGRAM REVIEWED*: No *COPY OF PRESCRIPTION DRUG MONITORING REPORT IN PATIENT MARY: No Prescriptions/Med Rec: Alum Hydrox/Mag Hydrox/Simeth [Mag-Al Plus] 15 ml PO Q6H PRN #14 cup PRN Reason: Heartburn Ciprofloxacin HCl [Cipro] 250 mg PO BID #10 tablet Pantoprazole [ProTONIX] 40 mg PO DAILY #7 tab.cr Home Medications: Home Meds Alum Hydrox/Mag Hydrox/Simeth [Mag-Al Plus] 15 ml PO Q6H PRN #14 cup 03/07/19 [ Rx] Ciprofloxacin HCl [Cipro] 250 mg PO BID #10 tablet 03/07/19 [Rx] Pantoprazole [ProTONIX] 40 mg PO DAILY #7 tab.cr 03/07/19 [Rx] Patient Handouts: Viral Gastroenteritis, Adult, [id number], Urinary Tract Infection, Adult, [id number], Aluminum Hydroxide; Magnesium Hydroxide tablets , Pantoprazole tablets, Ciprofloxacin tablets Referrals: Leta Reich DO [Primary Care Provider] - - Discharge Summary/Plan Comment DC Time >30 min.: No - Patient Data Vitals - Most Recent: Last Vital Signs Temp 36.1 C 03/07/19 12:00 Pulse 81 03/07/19 12:00 Resp 16 03/07/19 12:00 BP 117/73 03/07/19 12:00 Pulse Ox 97 03/07/19 12:00 Weight - Most Recent: 116.256 kg I&O - Last 24 hours: Intake & Output 03/06/19 03/07/19 03/07/19 22:59 06:59 14:59 Intake Total 2583 1120 Output Total 260 Balance 2323 1120 Lab Results - Last 24 hrs: Laboratory Results - last 24 hr 03/07/19 03/07/19 Range/Units 06:05 06:05 WBC 12.85 H (4.0-11.0) K/uL RBC 4.60 (4.30-5.90) M/uL Hgb 13.7 (12.0-16.0) g/dL Hct 41.1 (36.0-46.0) % MCV 89.3 (80.0-98.0) fL MCH 29.8 (27.0-32.0) pg MCHC 33.3 (31.0-37.0) g/dL RDW Std Deviation 42.1 (28.0-62.0) fl RDW Coeff of Castillo 13 (11.0-15.0) % Plt Count 240 (150-400) K/uL MPV 10.50 (7.40-12.00) fL Neut % (Auto) 71.0 (48.0-80.0) % Lymph % (Auto) 19.8 (16.0-40.0) % [place] % (Auto) 5.0 (0.0-15.0) % Eos % (Auto) 4.0 (0.0-7.0) % Baso % (Auto) 0.2 (0.0-1.5) % Neut # (Auto) 9.1 H (1.4-5.7) K/uL Lymph # (Auto) 2.5 H (0.6-2.4) K/uL [place] # (Auto) 0.6 (0.0-0.8) K/uL Eos # (Auto) 0.5 (0.0-0.7) K/uL Baso # (Auto) 0.0 (0.0-0.1) K/uL Nucleated RBC % 0.0 /100WBC Nucleated RBCs # 0 K/uL Sodium 140 (136-145) mmol/L Potassium 4.1 (3.5-5.1) mmol/L Chloride 106 (98-107) mmol/L Carbon Dioxide 23.6 (21.0-32.0) mmol/L BUN 9 (7.0-18.0) mg/dL Creatinine 0.7 (0.6-1.0) mg/dL Est Cr Clr Drug Dosing 102.40 mL/min Estimated GFR (MDRD) > 60.0 ml/min Glucose 61 L (74-106) mg/dL Calcium 7.8 L (8.5-10.1) mg/dL Total Bilirubin 0.4 (0.2-1.0) mg/dL AST 11 L (15-37) IU/L ALT 22 (14-63) IU/L Alkaline Phosphatase 58 (46-116) U/L Total Protein 6.7 (6.4-8.2) g/dL Albumin 2.7 L (3.4-5.0) g/dL Globulin 4.0 (2.6-4.0) g/dL Albumin/Globulin Ratio 0.7 L (0.9-1.6) JACINTA Results - Last 24 hrs: Microbiology 03/05/19 21:24 Urine Culture - Final Urine, Clean Catch MIXED ORALIA >100,000 CFU/ML 03/06/19 08:30 Campylobacter Antigen Assay - Final Stool / Feces NEGATIVE CAMPYLOBACTER AG REFERENCE RANGE: NEGATIVE Shiga Toxin I - Final NEGATIVE FOR SHIGA TOXIN 1 REFERENCE RANGE: NEGATIVE Shiga Toxin II - Final NEGATIVE FOR SHIGA TOXIN 2 REFERENCE RANGE: NEGATIVE 03/06/19 01:50 Aerobic Blood Culture - Preliminary Blood - Venous - Lab Draw NO GROWTH AFTER 1 DAY Anaerobic Blood Culture - Final 03/06/19 00:40 Aerobic Blood Culture - Preliminary Blood - Venous NO GROWTH AFTER 1 DAY Anaerobic Blood Culture - Preliminary NO GROWTH AFTER 1 DAY 03/06/19 08:30 C. difficile Antigen & Toxins A,B - Final Stool / Feces Med Orders - Current: Current Medications Al Hydroxide/Mg Hydroxide (Mag-Al Plus) 15 ml PO Q6H PRN PRN Reason: Heartburn Sodium Chloride (Normal Saline) 1,000 mls @ 125 mls/hr IV ASDIRECTED DEANNA Last Admin: 03/07/19 10:24 Dose: 125 mls/hr Pantoprazole Sodium 40 mg/ (Sodium Chloride) 10 mls @ 300 mls/hr IV Q24H DEANNA Last Admin: 03/07/19 10:25 Dose: 300 mls/hr Morphine Sulfate (Morphine) 2 mg IVPUSH Q6H PRN PRN Reason: Pain Last Admin: 03/06/19 23:14 Dose: 2 mg Ondansetron HCl (Zofran) 4 mg IVPUSH Q6H PRN PRN Reason: Nausea/Vomiting Last Admin: 03/06/19 10:37 Dose: 4 mg Discontinued Medications Sodium Chloride (Normal Saline) 1,000 mls @ 999 mls/hr IV .Bolus ONE Stop: 03/05/19 22:14 Last Admin: 03/05/19 21:35 Dose: 999 mls/hr Ceftriaxone Sodium/Dextrose 1 (gm/ Premix) 50 mls @ 100 mls/hr IV ONETIME ONE Stop: 03/05/19 22:35 Last Admin: 03/05/19 22:25 Dose: 100 mls/hr Ceftriaxone Sodium/Dextrose 1 (gm/ Premix) 50 mls @ 100 mls/hr IV Q24H DEANNA Last Admin: 03/06/19 21:15 Dose: 100 mls/hr Pantoprazole Sodium 40 mg/ (Sodium Chloride) 10 mls @ 300 mls/hr IV NOW ONE Stop: 03/05/19 23:45 Last Admin: 03/06/19 00:17 Dose: 300 mls/hr Sodium Chloride (Normal Saline) 1,000 mls @ 999 mls/hr IV ASDIRECTED ONE Stop: 03/06/19 00:43 Last Admin: 03/06/19 00:09 Dose: 999 mls/hr Ondansetron HCl (Zofran) 4 mg IVPUSH ONETIME ONE Stop: 03/05/19 21:15 Last Admin: 03/05/19 21:35 Dose: 4 mg
== END 2019-03-07 15:30 | disposition home or self-care (01) ==
LOC: MW.ED 21:02 → MW.MS 22:26
PROVIDERS: ADMIT Student in an Organized Health Care Education/Training Program; ATTEND Student in an Organized Health Care Education/Training Program
DX: K52.9 Noninfective gastroenteritis and colitis, unspecified (principal); N39.0 Urinary tract infection, site not specified; E86.0 Dehydration; F17.210 Nicotine dependence, cigarettes, uncomplicated; Z88.1 Allergy status to other antibiotic agents
CPT/HCPCS: 36415; 80053; 81001; 83605; 83690; 84703; 85025; 87040; 87046; 87086; 87324; 87338; 87899; 96361; 96365; 96375; 99284; C9113; J0696; J2270; J2405; J7030; J7050